=== PATIENT | male | born 1955 | race Caucasian/White ===

== ENCOUNTER 2016-11-25 22:55 | Inpatient (IN) ==
[2016-11-25 23:48] LABS: INR 1.3; Prothrombin Time 13.8 Seconds (9.4-12.1)
[2016-11-25 23:50] LABS: Activated Partial Thrombo Time 33.5 Seconds (26.0-36.0)
--- NOTE | 2016-11-26 00:18 | Emergency Department Note ---
START Narrative - START START: I examined this patient and my medical decision-making was reviewed with the EMPLOYEE COUNSELOR/PA/Advanced Practice Nurse/Resident Physician. I agree with the documented findings, disposition and treatment plan as described except to the extent set forth below. ED attending note: Patient seen with emergency medicine resident Dr. Landeros. Please see a copy of his note for details of the H&P, evaluation, management and disposition of this patient. We independently had [id number] contact with the patient Briefly: A 61-year-old male sent in by his primary care provider Dr. Bang. And a lathe sander Dr. Soto calling stating that he had an outpatient troponin which was elevated at 0.06. Patient has a history of obesity Mable hypertension. Not complaining of chest pain just fatigue and shortness of breath and weight gain. EKG shows nonspecific ST-T changes. Troponin came back even higher, elevated at 0.07. Patient will be admitted for ACS rule out. Provided 40 minutes of critical care services for this patient. Admission pending
[2016-11-26] MEDS ORDERED: *HR* HYDROmorphone (PF) 1 MG/ML SYRINGE IVP ONE (01:17)
[2016-11-26] MEDS ORDERED: Aspirin 81 MG TAB.CHEW PO ONE (01:17)
--- NOTE | 2016-11-26 01:18 | Emergency Department Note ---
Disposition Clinical Impression: Elevated troponin Acute exacerbation of CHF (congestive heart failure) Qualifiers: Congestive heart failure type: unspecified congestive heart failure type Qualified Code(s): I50.9 - Heart failure, unspecified Fluid overload Qualifiers: Hypervolemia type: unspecified Qualified Code(s): E87.70 - Fluid overload, unspecified Disposition: Admitted As Inpatient Condition: Fair Referrals: NO,PCP [Primary Care Provider] - Forms: ED Satisfaction Letter Chest Pain HPI - General Chief Complaint: ED Chest Pain Stated Complaint: Heart enzymes elevated Time Seen by Provider: 11/25/16 23:16 Source: patient Limitations: no limitations Vital Signs Reviewed: Yes Nursing Notes Reviewed: Yes - History of Present Illness HPI Narrative: 61-year-old male with a history of cardiomyopathy, congestive heart failure with fluid overload, previous DVT on Xarelto presents to the emergency department with progressive exertional dyspnea and intermittent chest pains. Just last week he was admitted at [facility] due to CHF exacerbation and fluid overload. Reports losing nearly 7 pounds while he was in the hospital. He was given nitroglycerin and Lasix according to the patient. Over the last week he is gaining back nearly 70 pounds and states he feels very short of breath specifically with exertion. He denies any current chest pain. He saw his primary doctor today, Dr. Bang who checked outpatient labs and found his troponin to be elevated at 0.06. They contact with the mold yard crane operator and sent him emergently to the emergency department. Currently states he feels comfortable while at rest. Denies any symptoms currently. Severity scale (1-10): 8 - Related Data Home Medications Medication Instructions Recorded Confirmed Atorvastatin [Lipitor] 40 mg PO DAILY 03/01/15 01/20/16 Clopidogrel [Plavix] 75 mg PO DAILY 03/01/15 01/20/16 Fluticasone/Salmeterol [Advair 1 puff IH BID 03/01/15 01/20/16 250-50 Diskus] Losartan [Cozaar] 25 mg PO DAILY 03/01/15 01/20/16 Montelukast [Singulair] 10 mg PO DAILY 03/01/15 01/20/16 Budesonide/Formoterol 160/4.5 2 puff IH BIDR 01/20/16 01/20/16 [Symbicort 160/4.5] [place]-3S/Dha/Epa/Fish Oil [Fish 1,200 mg PO DAILY 01/20/16 01/20/16 Oil 1,200 mg Softgel] Previous Rx's Medication Instructions Recorded Aspirin Enteric Coated [Aspirin EC] 81 mg PO DAILY #30 tablet. 01/22/16 Atorvastatin [Lipitor] 40 mg PO DAILY #30 tablet 01/22/16 Clopidogrel [Plavix] 75 mg PO DAILY #30 tablet 01/22/16 Docusate [Colace] 100 mg PO BID PRN #60 capsule 01/22/16 Furosemide [Lasix] 40 mg PO BIDDIURETIC #60 tablet 01/22/16 Isosorbide MONOnitrate (24 HR) 30 mg PO DAILY #30 tab.er.24h 01/22/16 [Imdur] Losartan [Cozaar] 50 mg PO DAILY #30 tablet 01/22/16 Metoprolol [Lopressor] 25 mg PO BID #60 tablet 01/22/16 OxyCODONE/APAP 10/325 [Percocet 1 each PO Q8HR PRN #30 tablet 01/22/16 10/325 MG] Naproxen [Naprosyn] 500 mg PO BID #14 tablet 02/14/16 levoFLOXacin [Levaquin] 500 mg PO DAILY #7 tablet 07/22/16 Cyclobenzaprine [Flexeril] 10 mg PO TID PRN #20 tablet 08/06/16 Ketorolac [Toradol] 10 mg PO Q6HR PRN #20 tablet 08/06/16 Allergies Allergy/AdvReac Type Severity Reaction Status Date / Time Penicillins Allergy Severe Difficulty Verified 11/25/16 22:59 Breathing All systems ED: reviewed and negative except as stated. Constitutional: Denies: fever, chills Cardiovascular: Reports: chest pain, dyspnea on exertion. Denies: syncope Respiratory: Reports: cough, dyspnea Gastrointestinal: Denies: abdominal pain, nausea, vomiting Musculoskeletal: Denies: back pain, neck pain Integumentary: Denies: rash Neurological: Denies: headache, weakness, numbness Endocrine: Reports: fatigue Chest Pain PMH - Past Medical History Medical history: Reports: arthritis, asthma, CHF, COPD, DVT, hypertension, other Surgical history: Reports: angioplasty/stent, pacemaker/AICD Psychiatric history: Reports: no psych history - Social History Smoking Status: Former smoker Alcohol use: Reports: rarely Drug use: Reports: none Physical Exam General: Appears well, alert and oriented x 3 Cardiovascular: Regular rate and rhythm. S1, S2. No murmurs, rubs or gallops. Respiratory: Mild diminished breath sounds bilaterally. No coughing or respiratory distress, speaking in full sentences Abdomen: Soft, nontender. No guarding, rebound or rigidity. Eyes: Conjunctivae are clear without scleral icterus HENT: No oral mucosal lesions. Moist mucous membranes Neuro: Alert and oriented, no motor sensory deficits Musculoskeletal: Bilateral lower extremity chronic skin changes involving the ankles bilaterally. No evidence of cellulitis. no calf tenderness. Skin: Chronic changes of lower extremities but no other rashes or lesions Psych: Appropriate - General Limitations: no limitations General appearance: alert, in no apparent distress Course Course Narrative: Presents with progressive dyspnea and significant weight gain. He was in [facility] just over a week ago and was treated for what sounds like CHF exacerbation with fluid overload. He reports gaining nearly 70 pounds in a week. At rest he denies any current symptoms. His EKG shows a ventricularly paced rhythm without any significant changes. His initial troponin was checked outpatient today and was 0.06 and repeated today which was 0.07 - Reevaluation(s) Reevaluation #1: Plan to admit due to acute exacerbation of CHF with fluid overload. 40 mg of IV Lasix given in the ED. Repeat troponin elevated at 0.07 in the face of normal renal function. Discussed with the on-call hospitalist who accepts for admission, no further orders at this time Vital Signs Temperature 97.9 F 11/25/16 22:56 Pulse Rate 69 11/25/16 22:56 Respiratory Rate 18 11/25/16 22:56 Blood Pressure 157/81 11/25/16 22:56 O2 Sat by Pulse Oximetry 94 11/25/16 22:56 Temperature 97.9 F 11/25/16 22:56 Pulse Rate 77 11/26/16 01:00 Respiratory Rate 18 11/26/16 01:00 Blood Pressure 160/75 11/26/16 01:00 O2 Sat by Pulse Oximetry 93 11/26/16 01:00 Oxygen Delivery Oxygen Delivery Room Air Chest Pain - Lab Data Lab Results 11/25/16 11/25/16 Range/Units 23:31 23:31 PT 13.8 H (9.4-12.1) Seconds INR 1.3 APTT 33.5 (26.0-36.0) Seconds Troponin I 0.07 H* (0-0.03) ng/mL - EKG Data EKG results narrative: EKG shows a ventricularly paced rhythm with a rate of 61 beats or minute. No significant ST changes. When compared to previous on 07/22/16 there is no significant changes.
[2016-11-26] MEDS ORDERED: Furosemide 40 MG/4 ML VIAL IVP ONE ×2 (01:48→10:59)
[2016-11-26] MEDS ORDERED: Nitroglycerin 0.4 MG TAB.SUBL SL PRN (04:33)
[2016-11-26 05:47] LABS: BUN/Creatinine Ratio 24 (6-26); Blood Urea Nitrogen 30 mg/dL (8-26); Calcium 9.1 mg/dL (8.6-10.8); Carbon Dioxide 29 mEq/L (19-29); Chloride 101 mEq/L (98-109); Chol/HDL Ratio 4.8 (0-4.9); Cholesterol 145 mg/dL (< 200); Glucose 197 mg/dL (70-99); HDL Cholesterol 30 mg/dL (40-59); LDL Cholesterol,Calculated 68 mg/dL (0-99); Magnesium 1.9 mg/dL (1.6-2.6); Osmolality,Calculated 304 (280-300); Potassium 3.6 mEq/L (3.5-4.5); Sodium 141 mEq/L (136-145); Triglycerides 233 mg/dL (< 150); eGFR For African Americans > 60 (> 60); eGFR For Non-African Americans 58 (> 60)
[2016-11-26] MEDS: *HR* Morphine 2 MG/ML SYRINGE IVP PRN ×2 (06:19→22:16)
[2016-11-26] MEDS ORDERED: *HR* OxyCODONE/APAP 10/325 TABLET PO PRN (08:53)
[2016-11-26] MEDS ORDERED: Naloxone 0.4 MG/ML INJ IVP PRN (08:54)
[2016-11-26] MEDS: Isosorbide MONOnitrate (24 HR) 30 MG TAB.ER.24H PO SCH (09:48)
[2016-11-26] MEDS: Aspirin Enteric Coated 81 MG Tablet PO SCH (09:48)
--- NOTE | 2016-11-26 10:19 | Cardiology Consult Note ---
Date of Encounter: 11/26/16 Time of Encounter: 10:12 Assessment and Plan (1) Acute exacerbation of CHF (congestive heart failure) Current Visit: Yes Status: Acute Based on documented hx, suspect acute on chronic diastolic CHF exacerbation. BNP is not elevated--94. There is pulmonary edema on CXR. Pt reports gaining 60 pounds over the past week, abdominal distention and worsening dyspnea. He reports recently being hospitalized at [facility] within recent weeks for CHF exacerbation and was diuresed reportedly >60 pounds. Will obtain records. Echo 01/20/16 was poor quality due to pt's size and EF could not be adequately determined. EF on [facility] 01/2016 was 60%. Will order echo with definity to reassess EF. Agree with IV Lasix--received 1 time dose 40mg IV at 0100. Creatinine mildly elevated--1.26. Monitor closely. Discussed with pt strict I/Os, Na and fluid restriction, daily weights. Continue to follow. Qualifiers: Congestive heart failure type: diastolic Qualified Code(s): I50.33 - Acute on chronic diastolic (congestive) heart failure (2) Chest pain Current Visit: No Status: Acute Pt reports chest pain, left sided and aching in nature. Does seem to worsen with exertion. Atypical features in that it is relieved with massage. [facility] 01/2016 with minimal disease. There was a 40% mid RCA stenosis. Per Dr. Bang encounter yesterday reported that pt had a stress test within the past couple weeks at [facility]. currently not at bedside. Pt denies stress test. Stress test was ordered by Dr. Bang yesterday. Will obtain records. If no stress test, will complete while inpt. Qualifiers: Chest pain type: unspecified Qualified Code(s): R07.9 - Chest pain, unspecified (3) CAD (coronary artery disease) Current Visit: No Status: Chronic Hx of PCI to distal LCx in 2014 at [place]. Repeat [facility] 01/2016 minimal CAD. 40% mid RCA lesion noted. ASA, Statin, BB. Qualifiers: Coronary Disease-Associated Artery/Lesion type: [place] artery [place] vs. transplanted heart: [place] heart Associated angina: angina presence unspecified Qualified Code(s): I25.10 - Atherosclerotic heart disease of [place] coronary artery without angina pectoris (4) Pacemaker Current Visit: No Status: Chronic Follows with device clinic. PAF and NSVT noted on last device check. (5) Elevated troponin Current Visit: Yes Status: Acute Troponins 0.06, 0.07, 0.07. Flat and adynamic in setting of CHF exacerbation. Nondiagnostic for true ACS. Obtaining echo. Obtaining records from [facility]. [facility] 01/2016 minimal disease. Hx of CAD and PCI. Possible stress test while inpt if one was not completed at [facility]. (6) PAF (paroxysmal atrial fibrillation) Current Visit: Yes Status: Chronic PAF noted on device check 07/2016. Followed up with Dr. Gibran Ortega after, was started on Xarelto. Currently paced. Discussion w patient/family: The assessment and plan as outlined above was discussed with the patient and/or family members who expressed understanding and agreement. All questions were answered. Thank you for involving us in the care of your patient. Please call with any questions. I will discuss all the above with Dr. Gibran Ortega and make changes as necessary. History of Present Illness Consult date: 11/26/16 Requesting physician: Henrry Shields Consult reason: CHF, troponin elevation Chief complaint: dyspnea, weight gain, chest pain History of present illness: Mr. Morgan is a 61 year old male with PMH morbid obesity, right heart failure, NIRMAL, HTN, HLD, CAD with hx of PCI, prior pacemaker placement. PAF on Xarelto, DVT hx that presented to ED after outpt troponin was found to be mildly elevated at 0.06. Pt reports being hospitalized last week at [facility] in [place] for CHF. He states he was diuresed with IV Lasix and lost >60 lbs. He states weight going into the hospital was 397 lbs, leaving it was 333 lbs. He reports weight at cardio office yesterday was 399 lbs. He reports intermittent left sided chest aching that does seem worse with exertion, but can also occur at rest. He had a [facility] 01/2016 that showed mild CAD, 40% mid RCA. Echo 01/2016 was poor quality and LVEF was unable to be estimated. He reports dyspnea has been worsening. He denies lower extremity edema, but reports abdominal distention. He reports eating a low salt diet. He states no one instructed him regarding fluid restriction, but that he thinks he drinks <2L/ fluid/day. BNP 94, CXR with cardiomegaly and pulmonary edema. Troponins trended- -0.06, 0.07, 0.07. Per Dr. Bang office note yesterday, reported a stress test was done at [facility] in the past 2 weeks. Pt tells me this AM he did not undergo a stress test. not at bedside to discuss. Past Med Surg Social Fam HX - Past Medical History Medical history: arthritis, asthma, CHF, COPD, coronary artery disease, DVT, hypertension, other Psychiatric history: no psych history - Past Surgical History Surgical History: angioplasty/stent, pacemaker/AICD - Social History Smoking Status: Former smoker Smokeless Tobacco Status: No Alcohol use: rarely Drug use: none - Family History Father Living Status: Hx Family Cardiac Disorders: Yes (CHF) Medications and Allergies Atorvastatin [Lipitor] 40 mg PO DAILY 11/26/16 [History] Cholecalciferol (Vitamin D3) [Vitamin D] 50,000 unit PO QWEEK 11/26/16 [History] Duloxetine HCl [Cymbalta] 60 mg PO DAILY 11/26/16 [History] Furosemide [Lasix] 80 mg PO DAILY 11/26/16 [History] Losartan Potassium [Cozaar] 50 mg PO DAILY 11/26/16 [History] Metoprolol [Lopressor] 25 mg PO DAILY 11/26/16 [History] Potassium Chloride [K-Tab ER] 20 meq PO DAILY 11/26/16 [History] Rivaroxaban [Xarelto] 20 mg PO QDPC 11/26/16 [History] Allergies Penicillins Allergy (Severe, Verified 11/25/16 22:59) Difficulty Breathing hives also All Systems Review: A 10-system review of systems was performed and is negative for pertinent findings except as documented above in the HPI. - Constitutional Constitutional: weight gain - Cardiovascular Cardiovascular: as per HPI, chest pain at rest, chest pain with exertion, dyspnea at rest, dyspnea on exertion, radiating jaw, neck or arm pain - Respiratory Respiratory: dyspnea Physical Examination Vital Signs, Last 4 Hours Temp Pulse Resp BP Pulse Ox 11/26/16 08:28 90 11/26/16 06:45 97.4 F L 81 20 115/65 90 Vital Signs Temp Pulse Resp BP Pulse Ox 11/26/16 10:18 97.9 F 70 18 132/76 90 11/26/16 08:28 90 11/26/16 06:45 97.4 F L 81 20 115/65 90 11/26/16 03:58 97.9 F 73 16 115/65 96 11/26/16 03:37 97 11/26/16 02:30 98.3 F 88 18 175/97 92 11/26/16 02:20 18 156/73 11/26/16 01:54 80 18 149/81 91 11/26/16 01:00 77 18 160/75 93 11/26/16 00:00 78 18 157/88 92 11/25/16 22:56 97.9 F 69 18 157/81 94 Intake and Output 11/25/16 11/26/16 11/26/16 23:59 07:59 15:59 Output Total 700 / 700 600 / 600 Balance -700 / -700 -600 / -600 Output: Urine 700 / 700 600 / 600 Other: Weight 178.262 kg General: Conversant, No Apparent Distress HEENT: Atraumatic, Normocephaly, Mucus Membranes Moist Neck: Normal carotid pulses Cardiac: Reg Rate and Rhythm, Normal S1 and S2, No Murmur Lungs: Normal Breath Sounds, No Wheeze, Rales, Rhonchi Neuro: Alert and responsive, No focal deficits noted Abdomen: Non-Tender, Other (distended) Skin: No rashes noted on visualized skin Musculoskeletal: No Chest Wall Tenderness Extremities: No Clubbing, No Edema, Normal Pulses Results 11/26/16 05:07 Lab Results 11/26/16 11/26/16 05:07 05:07 Sodium 141 Potassium 3.6 Chloride 101 Carbon Dioxide 29 BUN 30 H Creatinine 1.26 H Glucose 197 H Calcium 9.1 Magnesium 1.9 Troponin I 0.07 H* BMP 11/26/16 Range/Units 05:07 Sodium 141 (136-145) mEq/L Potassium 3.6 (3.5-4.5) mEq/L Chloride 101 (98-109) mEq/L Carbon Dioxide 29 (19-29) mEq/L BUN 30 H (8-26) mg/dL Creatinine 1.26 H (0.72-1.25) mg/dL Glucose 197 H (70-99) mg/dL Calcium 9.1 (8.6-10.8) mg/dL Cardiac Enzymes 11/26/16 11/25/16 Range/Units 05:07 23:31 Troponin I 0.07 H* 0.07 H* (0-0.03) ng/mL Impressions Chest X-Ray 11/25/16 23:17 IMPRESSION: Cardiomegaly and pulmonary edema. D/ / Leandro Scales MD / Leandro Scales MD Interpreting Provider: Leandro Scales MD Active Medications Aspirin (Aspirin Ec) 81 mg PO DAILY [facility] Stop: 05/28/17 09:01 Last Admin: 11/26/16 09:48 Dose: 81 mg Atorvastatin Calcium (Lipitor) 40 mg PO DAILY [facility] Stop: 05/28/17 09:01 Last Admin: 11/26/16 09:48 Dose: 40 mg Budesonide/Formoterol Fumarate (Symbicort) 2 puff IH BIDR [facility] Stop: 05/28/17 10:01 Cyclobenzaprine HCl (Flexeril) 10 mg PO TID PRN PRN Reason: Spasms Stop: 05/28/17 08:54 Docusate Sodium (Colace) 100 mg PO BID PRN; Protocol PRN Reason: Constipation Stop: 05/28/17 08:54 Hydromorphone HCl (Dilaudid) 0.5 mg IVP Q4HR PRN PRN Reason: Severe Pain (7-10) Stop: 05/28/17 08:55 Isosorbide Mononitrate (Imdur) 30 mg PO DAILY [facility] Stop: 05/28/17 09:01 Last Admin: 11/26/16 09:48 Dose: 30 mg Losartan Potassium (Cozaar) 25 mg PO DAILY ULISES PRN Reason: Protocol Stop: 05/28/17 09:01 Last Admin: 11/26/16 09:48 Dose: 25 mg Metoprolol Tartrate (Lopressor) 25 mg PO BID [facility] Stop: 05/28/17 09:01 Last Admin: 11/26/16 09:48 Dose: 25 mg Montelukast Sodium (Singulair) 10 mg PO DAILY [facility] Stop: 05/28/17 09:01 Last Admin: 11/26/16 09:48 Dose: 10 mg Morphine Sulfate (Morphine Sulfate) 2 mg IVP Q2H PRN PRN Reason: Chest pain unrelieved with NTG Stop: 05/28/17 04:34 Last Admin: 11/26/16 06:19 Dose: 2 mg Naloxone HCl (Narcan) 0.4 mg IVP Q2MIN PRN PRN Reason: Opioid Reversal Stop: 05/28/17 08:55 Nitroglycerin (Nitroglycerin) 0.4 mg SL Q5MIN PRN PRN Reason: Chest Pain Stop: 05/28/17 04:34 Oxycodone/Acetaminophen (Percocet 10/325) 1 each PO Q8HR PRN PRN Reason: Pain Stop: 05/28/17 08:54 - Imaging and Cardiology Echo: report reviewed Cardiac cath: report reviewed - EKG Interpretation EKG results cardiology: personally reviewed (Underlying paced, rhythm appears irregular.), other (24 hour tele AVG HR 80, paced) Consult Discharge Plan - Plan Referrals: NO,PCP [Primary Care Provider] -
[2016-11-26] MEDS: Budesonide/Formoterol 160/4.5 MDI IH SCH ×2 (10:38→23:24)
--- NOTE | 2016-11-26 11:16 | Internal Med History&Physical ---
Date of Encounter: 11/26/16 Time of Encounter: 11:11 Assessment and Plan (1) Morbid obesity with BMI of 40.0-44.9, adult Current visit: No Status: Chronic (2) CAD (coronary artery disease) Current visit: No Status: Chronic Trend troponin. So for mildly elevated flat pattern. Continue with aspirin and statin metoprolol and Imdur. Qualifiers: Coronary Disease-Associated Artery/Lesion type: [place] artery [place] vs. transplanted heart: [place] heart Associated angina: angina presence unspecified Qualified Code(s): I25.10 - Atherosclerotic heart disease of [place] coronary artery without angina pectoris (3) NIRMAL on CPAP Current visit: No Status: Chronic Continue CPAP nightly. (4) DVT prophylaxis Current visit: No Status: Acute Fully anticoagulated with Xarelto does not require any additional prophylaxis at this time. (5) Acute exacerbation of CHF (congestive heart failure) Current visit: Yes Status: Acute Patient reports 60 pound weight gain since recent discharge from [facility] [place]. Reports increasing shortness of breath and chest pain. CONSISTENT with CHF. Review of his medical record reveals January 2016 echocardiogram was inconclusive, poor quality study, could not assess ejection fraction. Plan: IV Lasix 40 mg twice a day, fluid restriction, sodium restricted diet, daily weights. Repeat echocardiogram with Definity contrast. Qualifiers: Congestive heart failure type: diastolic Qualified Code(s): I50.33 - Acute on chronic diastolic (congestive) heart failure (6) Elevated troponin Current visit: Yes Status: Acute Flat adynamic pattern likely secondary to CHF. Consult cardiology. (7) PAF (paroxysmal atrial fibrillation) Current visit: Yes Status: Chronic Rate controlled on metoprolol. Continue with Zaroxolyn. Internal Medicine - H&P: HPI Chief complaint: Elevated troponin Admitted From: Emergency Dept Plans for Post Hospital Care: Home History of present illness: Mr. Morgan is a 61 year old male with past medical history significant for cardiomyopathy and congestive heart failure, DVT, atrial fibrillation chronically anticoagulated Xarelto who presented to the hospital sent by his methods engineer for elevated troponin. He was recently admitted to the hospital in [place] and treated for heart failure. After discharge he says that he got more short of breath and increasing dyspnea on exertion and he started gaining weight. He reported gaining 60 pounds in the last 1 week from 330 pounds on discharge back to 390 which was his preadmission weight. He reports episodic left-sided chest pain in the area of his pacemaker which improves with him rubbing the area, lasting for several minutes. A 10 point review of systems was otherwise negative. Family history pertinent for coronary artery disease and the patient's father manifested at age 60 Past Med Surg Social Fam HX - Past Medical History Medical history: arthritis, asthma, CHF, COPD, coronary artery disease, DVT, hypertension, other Psychiatric history: no psych history - Past Surgical History Surgical History: angioplasty/stent, pacemaker/AICD - Social History Smoking Status: Former smoker Smokeless Tobacco Status: No Alcohol use: rarely Drug use: none - Family History Father Living Status: Hx Family Cardiac Disorders: Yes (CHF) Internal Medicine - H&P: Meds Atorvastatin [Lipitor] 40 mg PO DAILY 11/26/16 [History] Cholecalciferol (Vitamin D3) [Vitamin D] 50,000 unit PO QWEEK 11/26/16 [History] Duloxetine HCl [Cymbalta] 60 mg PO DAILY 11/26/16 [History] Furosemide [Lasix] 80 mg PO DAILY 11/26/16 [History] Losartan Potassium [Cozaar] 50 mg PO DAILY 11/26/16 [History] Metoprolol [Lopressor] 25 mg PO DAILY 11/26/16 [History] Potassium Chloride [K-Tab ER] 20 meq PO DAILY 11/26/16 [History] Rivaroxaban [Xarelto] 20 mg PO QDPC 11/26/16 [History] Allergies Penicillins Allergy (Severe, Verified 11/25/16 22:59) Difficulty Breathing hives also All Systems PM: A 10-system review of systems was performed and is negative for pertinent findings except as documented above in the HPI. - Constitutional Vitals: Temp Pulse Resp BP Pulse Ox 97.9 F 70 18 132/76 95 11/26/16 10:18 11/26/16 10:18 11/26/16 10:38 11/26/16 10:18 11/26/16 10:38 General appearance: Present: A&O X 3, morbidly obese, no acute distress - Eye Eye exam: Present: PERRL, conjuntiva pink, sclera anicteric Pupils: Present: PERRL - Neck Neck exam general surgery: Present: supple, trachea midline. Absent: lymphadenopathy - Respiratory Respiratory exam: Present: CTAB. Absent: accessory muscle use, rales, rhonchi, wheezes - Cardiovascular Cardiovascular exam: Present: RRR, +S1, +S2. Absent: diastolic murmur, gallop, rubs, systolic murmur - GI/Abdominal GI/Abdominal exam: Present: normal bowel sounds, soft, no peritoneal signs. Absent: distended, tenderness - Extremities Exam Extremities exam: Present: pedal edema, warm, radial pulses palpable and symetrical. Absent: calf tenderness, cyanotic - Neurological Exam Neurological exam: Present: CN II-XII intact, oriented X3, no focal deficits. Absent: pronater drift, facial droop, speech deficit - Skin Skin exam: Present: dry, intact Internal Med - H&P Results - Labs CBC & Chem 7: 11/26/16 05:07 - EKG Data -: EKG Interpreted by Myself (Ventricularly paced rhythm, underlying atrial flutter)
--- NOTE | 2016-11-26 12:31 | Electrocardiograph Report ---
[address] [place], [place] [address] Test Date: 2016-11-25 Pat Name: Steve Morgan Department: 103 Room: 2A Gender: M Intelligence Senior Sergeant: EVI : 1955 Requested By: Guy Cedeno Order Number: [id number] Reading MD: Desmond Dorantes MD Measurements Intervals Ruby Rate: 61 P: -18 ME: 95 QRS: -64 QRSD: 90 T: -3 QT: 371 QTc: 374 Interpretive Statements DEMAND VENTRICULAR PACEMAKER Electronically Signed On 11-26-2016 12:30:05 EDT by Desmond Dorantes MD
[2016-11-26] MEDS: *HR* HYDROmorphone (PF) 1 MG/ML SYRINGE IVP PRN (12:39)
[2016-11-26] MEDS ORDERED: *HR* Rivaroxaban 10 MG TABLET PO SCH (17:00)
[2016-11-26] MEDS: *HR* Rivaroxaban 10 MG TABLET PO SCH (18:00)
[2016-11-26] MEDS: Furosemide 40 MG/4 ML VIAL IVP SCH ×2 (18:13→22:16)
[2016-11-26] MEDS ORDERED: Perflutren Lipid Microsphere 1.3 ML in 0.9 % Sodium Chloride 8.7 ML IVP ONE (20:14)
[2016-11-27 05:06] LABS: Basophils % 0.5 %; Eosinophils # 0.3 K/mcL (0.0-0.6); Eosinophils % 3.1 %; Hematocrit 43.4 % (37.5-50.1); Hemoglobin 13.8 g/dL (12.9-16.9); Immature Granulocytes % 0.2 % (0-4); Lymphocytes # 0.9 K/mcL (0.6-4.6); Lymphocytes % 11.4 %; Mean Corpuscular HGB Conc 31.8 g/dL (31.6-35.5); Mean Corpuscular Hemoglobin 29.7 pg (28.0-33.3); Mean Corpuscular Volume 93.3 fL (83.0-100.0); Mean Platelet Volume 11.4 fL (9.4-12.4); Monocytes # 1.1 K/mcL (0.0-1.3); Monocytes % 13.3 %; Neutrophils # 5.9 K/mcL (1.6-8.9); Platelet Count 173 K/mcL (140-400); Red Blood Count 4.65 M/mcL (4.19-5.50); Red Cell Distribution Width 14.7 % (11.5-14.5); Segmented Neutrophils % 71.5 %
[2016-11-27 05:24] LABS: BUN/Creatinine Ratio 26 (6-26); Blood Urea Nitrogen 30 mg/dL (8-26); Carbon Dioxide 31 mEq/L (19-29); Chloride 99 mEq/L (98-109); Glucose 110 mg/dL (70-99); Osmolality,Calculated 299 (280-300); Sodium 141 mEq/L (136-145); eGFR For African Americans > 60 (> 60); eGFR For Non-African Americans > 60 (> 60)
[2016-11-27] MEDS: Budesonide/Formoterol 160/4.5 MDI IH SCH ×2 (07:57→20:09)
[2016-11-27] MEDS: Furosemide 40 MG/4 ML VIAL IVP SCH ×2 (08:16→16:27)
[2016-11-27] MEDS: *HR* HYDROmorphone (PF) 1 MG/ML SYRINGE IVP PRN ×2 (08:16→12:15)
[2016-11-27] MEDS: Aspirin Enteric Coated 81 MG Tablet PO SCH (08:17)
--- NOTE | 2016-11-27 09:48 | Cardiology Progress Note ---
Date of Encounter: 11/27/16 Time of Encounter: 09:46 Assessment and Plan (1) Acute exacerbation of CHF (congestive heart failure) Current Visit: Yes Status: Acute Based on documented hx, suspect acute on chronic diastolic CHF exacerbation. BNP is not elevated--94. There is pulmonary edema on CXR. Pt reports gaining 60 pounds over the past week, abdominal distention and worsening dyspnea. He reports recently being hospitalized at [facility] within recent weeks for CHF exacerbation and was diuresed reportedly >60 pounds. Will obtain records. Echo 01/20/16 was poor quality due to pt's size and EF could not be adequately determined. EF on [facility] 01/2016 was 60%. Echo with definity to reassess EF is pending. Agree with IV Lasix--40mg BID. Cumulative I/O negative -3010mL, but minimal intake recorded, so question accuracy. Discussed with pt strict I/Os, Na and fluid restriction, daily weights. Continue to follow. Qualifiers: Congestive heart failure type: diastolic Qualified Code(s): I50.33 - Acute on chronic diastolic (congestive) heart failure (2) Chest pain Current Visit: No Status: Acute Pt reports chest pain, left sided and aching in nature. Does seem to worsen with exertion. Atypical features in that it is relieved with massage. [facility] 01/2016 with minimal disease. There was a 40% mid RCA stenosis. Per Dr. Bang encounter 11/25/16 reported that pt had a stress test within the past couple weeks at [facility]. Pt denies stress test. I discussed with this AM. She states a physician at [facility] told her they did a stress test, but never discussed results. Stress test was ordered by Dr. Bang 11/25/16. Will obtain records. If no stress test, will complete while inpt. Records requested. Qualifiers: Chest pain type: unspecified Qualified Code(s): R07.9 - Chest pain, unspecified (3) CAD (coronary artery disease) Current Visit: No Status: Chronic Hx of PCI to distal LCx in 2014 at [place]. Repeat [facility] 01/2016 minimal CAD. 40% mid RCA lesion noted. ASA, Statin, BB. Qualifiers: Coronary Disease-Associated Artery/Lesion type: [place] artery [place] vs. transplanted heart: [place] heart Associated angina: angina presence unspecified Qualified Code(s): I25.10 - Atherosclerotic heart disease of [place] coronary artery without angina pectoris (4) Pacemaker Current Visit: No Status: Chronic Follows with device clinic. PAF and NSVT noted on last device check. (5) Elevated troponin Current Visit: Yes Status: Acute Troponins 0.06, 0.07, 0.07. Flat and adynamic in setting of CHF exacerbation. Nondiagnostic for true ACS. Obtaining echo. Obtaining records from [facility]. [facility] 01/2016 minimal disease. Hx of CAD and PCI. Possible stress test while inpt if one was not completed at [facility]. (6) PAF (paroxysmal atrial fibrillation) Current Visit: Yes Status: Chronic PAF noted on device check 07/2016. Followed up with Dr. Gibran Ortega after, was started on Xarelto. Currently paced, underlying PAF. Discussion w patient/family: The assessment and plan as outlined above was discussed with the patient and/or family members who expressed understanding and agreement. All questions were answered. Thank you for involving us in the care of your patient. Please call with any questions. I will discuss all the above with Dr. Gibran Ortega and make changes as necessary. Subjective Principal diagnosis: CHF Interval history: Pt reports symptoms are unchanged. Still reports shortness of breath and abdominal distention. Cumulative I/O negative -3010mL. Objective Vital Signs, Last 4 Hours Temp Resp BP Pulse Ox 11/27/16 08:35 96 11/27/16 06:55 98.2 F 89 141/76 96 Vital Signs Temp Pulse Resp BP Pulse Ox 11/27/16 08:35 96 11/27/16 06:55 98.2 F 89 141/76 96 11/27/16 04:57 98 F 90 16 146/77 95 11/27/16 00:21 98 F 77 18 168/82 93 11/26/16 20:13 98.6 F 75 18 150/78 90 11/26/16 15:31 97.8 F 70 18 119/61 92 11/26/16 10:38 18 95 11/26/16 10:18 97.9 F 70 18 132/76 90 Intake and Output 11/26/16 11/27/16 11/27/16 23:59 07:59 15:59 Output Total 1350 / 1350 600 / 600 Balance -1350 / -1350 -600 / -600 Output: Urine 1350 / 1350 600 / 600 Other: Meal npo Percent of Meal Consumed 0% Weight 179.6 kg Patient Weight 11/27/16 23:59 Weight 179.6 kg General: Conversant, No Apparent Distress HEENT: Atraumatic, Normocephaly, Mucus Membranes Moist Neck: No JVD, Normal carotid pulses Cardiac: Reg Rate and Rhythm, Normal S1 and S2, No Murmur Lungs: Normal Breath Sounds, No Wheeze, Rales, Rhonchi Neuro: Alert and responsive, No focal deficits noted Abdomen: Non-Tender, Other (distended) Skin: No rashes noted on visualized skin Musculoskeletal: No Chest Wall Tenderness Extremities: No Clubbing, No Cyanosis, No Edema, Normal Pulses Results 11/27/16 04:33 11/27/16 04:33 Lab Results 11/26/16 11/27/16 11/27/16 10:43 04:33 04:33 WBC 8.3 Hgb 13.8 Hct 43.4 Plt Count 173 Sodium 141 Potassium 4.0 Chloride 99 Carbon Dioxide 31 H BUN 30 H Creatinine 1.15 Glucose 110 H Calcium 9.0 Magnesium 2.0 Troponin I 0.06 H* Short CBC 11/27/16 Range/Units 04:33 WBC 8.3 (4.3-11.1) K/mcL Hgb 13.8 (12.9-16.9) g/dL Hct 43.4 (37.5-50.1) % Plt Count 173 (140-400) K/mcL Neutrophils # 5.9 (1.6-8.9) K/mcL BMP 11/27/16 Range/Units 04:33 Sodium 141 (136-145) mEq/L Potassium 4.0 (3.5-4.5) mEq/L Chloride 99 (98-109) mEq/L Carbon Dioxide 31 H (19-29) mEq/L BUN 30 H (8-26) mg/dL Creatinine 1.15 (0.72-1.25) mg/dL Glucose 110 H (70-99) mg/dL Calcium 9.0 (8.6-10.8) mg/dL Cardiac Enzymes 11/26/16 Range/Units 10:43 Troponin I 0.06 H* (0-0.03) ng/mL Active Medications Aspirin (Aspirin Ec) 81 mg PO DAILY [facility] Stop: 05/28/17 09:01 Last Admin: 11/27/16 08:17 Dose: 81 mg Atorvastatin Calcium (Lipitor) 40 mg PO HS [facility] Stop: 05/29/17 21:01 Budesonide/Formoterol Fumarate (Symbicort) 2 puff IH BIDR [facility] Stop: 05/28/17 10:01 Last Admin: 11/27/16 07:57 Dose: 2 puff Cyclobenzaprine HCl (Flexeril) 10 mg PO TID PRN PRN Reason: Spasms Stop: 05/28/17 08:54 Docusate Sodium (Colace) 100 mg PO BID PRN; Protocol PRN Reason: Constipation Stop: 05/28/17 08:54 Last Admin: 11/26/16 22:16 Dose: 100 mg Duloxetine HCl (Cymbalta) 60 mg PO DAILY [facility] Stop: 05/29/17 09:01 Last Admin: 11/27/16 08:17 Dose: 60 mg Furosemide (Lasix) 40 mg IVP BID [facility] Stop: 05/28/17 16:47 Last Admin: 11/27/16 08:16 Dose: 40 mg Hydromorphone HCl (Dilaudid) 0.5 mg IVP Q4HR PRN PRN Reason: Severe Pain (7-10) Stop: 05/28/17 08:55 Last Admin: 11/27/16 08:16 Dose: 0.5 mg Isosorbide Mononitrate (Imdur) 30 mg PO DAILY [facility] Stop: 05/28/17 09:01 Last Admin: 11/26/16 09:48 Dose: 30 mg Losartan Potassium (Cozaar) 50 mg PO DAILY [facility] Stop: 05/29/17 09:01 Metoprolol Tartrate (Lopressor) 25 mg PO DAILY [facility] Stop: 05/29/17 09:01 Montelukast Sodium (Singulair) 10 mg PO DAILY [facility] Stop: 05/28/17 09:01 Last Admin: 11/27/16 08:17 Dose: 10 mg Morphine Sulfate (Morphine Sulfate) 2 mg IVP Q2H PRN PRN Reason: Chest pain unrelieved with NTG Stop: 05/28/17 04:34 Last Admin: 11/26/16 22:16 Dose: 2 mg Naloxone HCl (Narcan) 0.4 mg IVP Q2MIN PRN PRN Reason: Opioid Reversal Stop: 05/28/17 08:55 Nitroglycerin (Nitroglycerin) 0.4 mg SL Q5MIN PRN PRN Reason: Chest Pain Stop: 05/28/17 04:34 Oxycodone/Acetaminophen (Percocet 10/325) 1 each PO Q8HR PRN PRN Reason: Pain Stop: 05/28/17 08:54 Potassium Chloride (Potassium Chloride) 20 meq PO DAILY [facility] Stop: 05/28/17 11:16 Last Admin: 11/27/16 08:18 Dose: 20 meq Rivaroxaban (Xarelto) 20 mg PO 1700 [facility] Stop: 05/28/17 17:01 Last Admin: 11/26/16 18:00 Dose: 20 mg - Imaging and Cardiology Echo: pending - EKG Interpretation EKG results cardiology: other (24 hour tele AVG HR 74, paced.) Consult Discharge Plan - Plan Referrals: NO,PCP [Primary Care Provider] -
--- NOTE | 2016-11-27 10:06 | Internal Med Progress Note ---
Date of Encounter: 11/27/16 Time of Encounter: 10:04 - Assessment and plan (1) CHF (congestive heart failure) Current Visit: Yes Status: Acute Assessment and plan: Patient presents with chest pain, slight troponin leak, weight gain and pedal edema. Cardiology consult appreciated, continue IV Lasix along with fluid restriction, beta gray, urine output monitoring. Telemetry monitoring. Supportive care and supplemental oxygen. Echocardiogram shows mildly decreased ejection fraction of 50%, mild concentric LVH, mild right ventricular dilation, mild mitral stenosis/tricuspid regurgitation/pulmonary hypertension, moderate left atrial dilatation. Qualifiers: Congestive heart failure type: combined Congestive heart failure chronicity : acute on chronic Qualified Code(s): I50.43 - Acute on chronic combined systolic (congestive) and diastolic (congestive) heart failure (2) Chest pain Current Visit: Yes Status: Acute Assessment and plan: Currently chest pain-free. Continue aspirin, beta gray, statin. Telemetry monitoring remains uneventful. Serial troponins are flat and adynamic, around 0.07. Cardiology follow-up appreciated. Echocardiogram results as above. Follow-up nuclear stress test results, 2 day testing is needed. Qualifiers: Chest pain type: precordial pain Qualified Code(s): R07.2 - Precordial pain (3) Elevated troponin Current Visit: Yes Status: Acute Assessment and plan: Plan as above. (4) Morbid obesity with BMI of 40.0-44.9, adult Current Visit: Yes Status: Chronic (5) CAD (coronary artery disease) Current Visit: Yes Status: Chronic Qualifiers: Coronary Disease-Associated Artery/Lesion type: [place] artery [place] vs. transplanted heart: [place] heart Associated angina: angina presence unspecified Qualified Code(s): I25.10 - Atherosclerotic heart disease of [place] coronary artery without angina pectoris (6) NIRMAL on CPAP Current Visit: Yes Status: Chronic (7) Chronic back pain Current Visit: Yes Status: Chronic Assessment and plan: Continue pain control with oral Percocet and IV morphine. Qualifiers: Back pain location: back pain in unspecified location Back pain laterality : unspecified Qualified Code(s): M54.9 - Dorsalgia, unspecified; G89.29 - Other chronic pain (8) Chronic venous stasis dermatitis of both lower extremities Current Visit: Yes Status: Chronic (9) PAF (paroxysmal atrial fibrillation) Current Visit: Yes Status: Chronic Assessment and plan: Currently rate controlled. Continue telemetry monitoring and beta gray. Continue long-term anticoagulation with Xarelto. - Subjective Interval history: Reports improvement in shortness of breath and leg swelling; recent weight gain of 60lbs? per patient; has some orthopnea and exertional dyspnea; improved chest pain; - Constitutional Vitals: Temp Pulse Resp BP Pulse Ox 98.2 F 90 89 141/76 96 11/27/16 06:55 11/27/16 04:57 11/27/16 06:55 11/27/16 06:55 11/27/16 08:35 General appearance: Present: A&O X 3, morbidly obese, answers questions appropriately - Respiratory Respiratory exam: Present: CTAB. Absent: accessory muscle use, rales, rhonchi, wheezes - Cardiovascular Cardiovascular exam: Present: RRR, +S1, +S2. Absent: diastolic murmur, gallop, rubs, systolic murmur - GI/Abdominal GI/Abdominal exam: Present: normal bowel sounds, soft (obese), no peritoneal signs. Absent: distended, tenderness - Extremities Exam Extremities exam: Present: full ROM, pedal edema (trace), warm, radial pulses palpable and symetrical. Absent: calf tenderness, cyanotic Additional comments: B/L anterior leg stasis dermatitis - Neurological Exam Neurological exam: Present: CN II-XII intact, oriented X3, no focal deficits. Absent: pronater drift, facial droop, speech deficit - Skin Skin exam: Present: dry, intact Internal Medicine: Result - Labs CBC & Chem 7: 11/27/16 04:33 11/27/16 04:33 Labs: Short CBC 11/27/16 Range/Units 04:33 WBC 8.3 (4.3-11.1) K/mcL Hgb 13.8 (12.9-16.9) g/dL Hct 43.4 (37.5-50.1) % Plt Count 173 (140-400) K/mcL Neutrophils # 5.9 (1.6-8.9) K/mcL BMP 11/27/16 04:33 Sodium 141 Potassium 4.0 Chloride 99 Carbon Dioxide 31 H BUN 30 H Creatinine 1.15 Glucose 110 H Calcium 9.0 Cardiac Enzymes 11/26/16 Range/Units 10:43 Troponin I 0.06 H* (0-0.03) ng/mL - ABG Interpretation ABG results: PT/INR, D-dimer PT 13.8 Seconds (9.4-12.1) H 11/25/16 23:31 Consult Discharge Plan - Plan Referrals: NO,PCP [Primary Care Provider] -
--- NOTE | 2016-11-27 11:03 | Event Note ---
Date of Encounter: 11/27/16 Time of Encounter: 11:01 - Cardiology Event Note Records received from [facility]. No stress test completed. Echo was the only study done during hospitalization. Will proceed with stress test this AM. It will be a 2 day study.
[2016-11-27] MEDS ORDERED: Regadenoson 0.4 MG/5 ML SYRINGE IVP ONE (12:21)
[2016-11-27] MEDS: Isosorbide MONOnitrate (24 HR) 30 MG TAB.ER.24H PO SCH (16:23)
[2016-11-27] MEDS: *HR* Rivaroxaban 10 MG TABLET PO SCH (16:27)
[2016-11-27] MEDS: *HR* Morphine 2 MG/ML SYRINGE IVP PRN (22:01)
[2016-11-28] MEDS: *HR* Morphine 2 MG/ML SYRINGE IVP PRN ×2 (04:56→08:31)
[2016-11-28] MEDS: Furosemide 40 MG/4 ML VIAL IVP SCH ×2 (08:17→17:06)
[2016-11-28] MEDS: Aspirin Enteric Coated 81 MG Tablet PO SCH (08:18)
[2016-11-28] MEDS: Isosorbide MONOnitrate (24 HR) 30 MG TAB.ER.24H PO SCH (08:18)
--- NOTE | 2016-11-28 09:28 | Cardiology Progress Note ---
Date of Encounter: 11/28/16 Time of Encounter: 09:30 Assessment and Plan (1) Acute exacerbation of CHF (congestive heart failure) Current Visit: Yes Status: Acute Per Cardiology: Based on documented hx, suspect acute on chronic diastolic CHF exacerbation. BNP is not elevated--94. There is pulmonary edema on CXR. Pt reports "gaining 60 pounds over the past week", abdominal distention and worsening dyspnea. He reports recently being hospitalized at [facility] within recent weeks for CHF exacerbation and was diuresed reportedly ">60 pounds ". Echo 01/20/16 was poor quality due to pt's size and EF could not be adequately determined. EF on [facility] 01/2016 was 60%. Current echo shows EF 50%, mild RV dilation, mild LVH, moderate left atrial dilation, mild MR, mild TR, mild pulmonary hypertension. On IV Lasix--40mg BID. Cumulative I/O negative -4490mL, but minimal intake recorded, so question accuracy. On strict I/Os, Na and fluid restriction, daily weights. Current weight 396lbs, office notes dating back to August 2016 show weight 399lbs. Qualifiers: Congestive heart failure type: diastolic Qualified Code(s): I50.33 - Acute on chronic diastolic (congestive) heart failure (2) Chest pain Current Visit: Yes Status: Acute Per Cardiology: Pt reports chest pain eft sided and aching in nature this is continuous "around his pacer site". Atypical features in that it is relieved with massage. [facility] 2015 with minimal disease. There was a 40% mid RCA stenosis. Stress test pending. Further recs after stress test. Qualifiers: Chest pain type: precordial pain Qualified Code(s): R07.2 - Precordial pain (3) Elevated troponin Current Visit: Yes Status: Acute Per Cardiology: Troponins 0.06, 0.07, 0.07. Flat and adynamic in setting of CHF exacerbation. Nondiagnostic for true ACS. Suspect demand ischemia in setting of diastolic CHF. No CR C/S warranted. (4) CAD (coronary artery disease) Current Visit: Yes Status: Chronic Per Cardiology: Hx of PCI to distal LCx in 2014 at [place].Repeat [facility] 01/2016 minimal CAD. 40% mid RCA lesion noted. On ASA, Statin, BB. Qualifiers: Coronary Disease-Associated Artery/Lesion type: [place] artery [place] vs. transplanted heart: [place] heart Associated angina: angina presence unspecified Qualified Code(s): I25.10 - Atherosclerotic heart disease of [place] coronary artery without angina pectoris (5) PAF (paroxysmal atrial fibrillation) Current Visit: Yes Status: Chronic Per Cardiology: PAF noted on device check 07/2016. On Xarelto. Currently paced, underlying PAF. (6) Chronic venous stasis dermatitis of both lower extremities Current Visit: Yes Status: Chronic Per Cardiology: Appears stable. Discussion w patient/family: The assessment and plan as outlined above was discussed with the patient who expressed understanding and agreement. All questions were answered. Thank you for involving us in the care of your patient. Please call with any questions. Subjective Principal diagnosis: CHF Interval history: Patient continues to report left-sided chest wall discomfort around "his pacer site "about a 5 out of 10. He reports pain has been continuous and about the same as yesterday. Denies any short of breath or palpitations. Reports completed part 2 of his stress test this morning. Objective Vital Signs, Last 4 Hours Temp Pulse Resp BP Pulse Ox 11/28/16 08:41 94 11/28/16 07:05 98 F 81 18 127/75 94 General: Conversant, No Apparent Distress HEENT: Atraumatic, Normocephaly, Mucus Membranes Moist Cardiac: Reg Rate and Rhythm, Normal S1 and S2, No Murmur Lungs: Normal Breath Sounds, No Wheeze, Rales, Rhonchi Neuro: Alert and responsive, No focal deficits noted Abdomen: Soft, Non-Tender, Other (obese) Skin: Other Musculoskeletal: Other (Left sided CW tenderness) Extremities: Other (trace bilateral LE edema, scaly, dusky colored legs) Results 11/27/16 04:33 11/27/16 04:33 Laboratory Tests 11/25/16 11/26/16 11/26/16 23:31 05:07 05:07 Magnesium Troponin I 0.07 H* 0.07 H* LDL Cholesterol, Calc 68 11/26/16 11/27/16 10:43 04:33 Magnesium 2.0 Troponin I 0.06 H* LDL Cholesterol, Calc ITS Impressions Chest X-Ray 11/25/16 23:17 IMPRESSION: Cardiomegaly and pulmonary edema. D/ / Leandro Scales MD / Leandro Scales MD Interpreting Provider: Leandro Scales MD Intake & Output 11/25/16 11/26/16 11/27/16 11/28/16 23:59 23:59 23:59 23:59 Intake Total 240 / 240 480 / 480 240 / 240 Output Total 1900 / 1900 3100 / 3100 450 / 450 Balance -1660 / -1660 -2620 / -2620 -210 / -210 Weight 178.262 kg 179.6 kg 180.2 kg Active Medications Aspirin (Aspirin Ec) 81 mg PO DAILY [facility] Stop: 05/28/17 09:01 Last Admin: 11/28/16 08:18 Dose: 81 mg Atorvastatin Calcium (Lipitor) 40 mg PO HS [facility] Stop: 05/29/17 21:01 Last Admin: 11/27/16 22:01 Dose: 40 mg Budesonide/Formoterol Fumarate (Symbicort) 2 puff IH BIDR [facility] Stop: 05/28/17 10:01 Last Admin: 11/27/16 20:09 Dose: 2 puff Cyclobenzaprine HCl (Flexeril) 10 mg PO TID PRN PRN Reason: Spasms Stop: 05/28/17 08:54 Docusate Sodium (Colace) 100 mg PO BID PRN; Protocol PRN Reason: Constipation Stop: 05/28/17 08:54 Last Admin: 11/26/16 22:16 Dose: 100 mg Duloxetine HCl (Cymbalta) 60 mg PO DAILY [facility] Stop: 05/29/17 09:01 Last Admin: 11/28/16 08:17 Dose: 60 mg Furosemide (Lasix) 40 mg IVP BIDDIURETIC [facility] Stop: 05/29/17 17:01 Last Admin: 11/28/16 08:17 Dose: 40 mg Isosorbide Mononitrate (Imdur) 30 mg PO DAILY [facility] Stop: 05/28/17 09:01 Last Admin: 11/28/16 08:18 Dose: 30 mg Losartan Potassium (Cozaar) 50 mg PO DAILY [facility] Stop: 05/29/17 09:01 Last Admin: 11/28/16 08:18 Dose: 50 mg Metoprolol Tartrate (Lopressor) 25 mg PO BID [facility] Stop: 05/29/17 21:01 Last Admin: 11/28/16 08:19 Dose: 25 mg Montelukast Sodium (Singulair) 10 mg PO DAILY [facility] Stop: 05/28/17 09:01 Last Admin: 11/28/16 08:18 Dose: 10 mg Morphine Sulfate (Morphine Sulfate) 2 mg IVP Q2H PRN PRN Reason: Chest pain unrelieved with NTG Stop: 05/28/17 04:34 Last Admin: 11/28/16 08:31 Dose: 2 mg Naloxone HCl (Narcan) 0.4 mg IVP Q2MIN PRN PRN Reason: Opioid Reversal Stop: 05/28/17 08:55 Nitroglycerin (Nitroglycerin) 0.4 mg SL Q5MIN PRN PRN Reason: Chest Pain Stop: 05/28/17 04:34 Oxycodone/Acetaminophen (Percocet 10/325) 1 each PO Q8HR PRN PRN Reason: Pain Stop: 05/28/17 08:54 Potassium Chloride (Potassium Chloride) 20 meq PO DAILY [facility] Stop: 05/28/17 11:16 Last Admin: 11/28/16 08:18 Dose: 20 meq Rivaroxaban (Xarelto) 20 mg PO 1700 [facility] Stop: 05/28/17 17:01 Last Admin: 11/27/16 16:27 Dose: 20 mg - Imaging and Cardiology Stress Test: pending Consult Discharge Plan - Plan Referrals: NO,PCP [Primary Care Provider] -
[2016-11-28] MEDS: Budesonide/Formoterol 160/4.5 MDI IH SCH ×2 (10:15→19:50)
[2016-11-28] MEDS ORDERED: *HR* Morphine 2 MG/ML SYRINGE IVP PRN (12:03)
--- NOTE | 2016-11-28 13:38 | Nuclear Medicine Stress Report ---
Regadenoson Nuclear Stress Name: Steve Morgan Date of Study: 11/27/2016 Date: 1955 Ht: 70.0 in Medical Record#: [id number] Age: 61 Wt: 396.0 lb Gender: Male Order #: [id number] Location: [facility] Room: [facility] Supervising Provider: Donta Reynoso CNP Reading Physician: Arvin Farah DO, FACClemente, BRIAN Ordering Physician: Dasia Horn MD Primary Care Physician: None Stress Technologist: Meera Garcia RRT Wood Technologist: Ana Benítez Indications: Chest Pain Impression: Pharmacologic stress ECG is non diagnostic for ischemia due to baseline paced rhythm. Gated EF = 54%. Small sized, mild to moderate intensity, fixed apical inferior and apex defect possibly due to a prior infarct. Perfusion imaging was negative for ischemia. History: Hypertension Hypercholesteremia Prior PCI Stress Test Summary: Stress Test Type: Pharmacologic Regadenoson 0.4mg/5ml given IV Baseline Information: Initial Heart Rate: 72 Blood Pressure: 142/90 Stress Information: Test Terminated Due to (primary): As per protocol Maximum Blood Pressure: 128/84 Maximum Heart Rate: 91 Percent Maximum Heart Rate Achieved: 57 Double Product: [id number] METS Reached: 1 Symptoms: Chest pain Nuclear Summary: SPECT myocardial perfusion imaging using Tc99m Sestamibi given intravenously was performed at rest and following cardiac stress testing. The resting images were obtained following initial dose of 35.3 mCi. Following stress an additional dose of 35.3 mCi was given at peak exercise or 30 seconds post regadenoson infusion. Medication Given: Time Medication Dose Units Route Findings: Stress Note * Paced rhythm throughout the study. * No baseline arrhythmias were noted. * Pharmacologic stress ECG is non diagnostic for ischemia due to baseline paced rhythm. * No arrhythmias were noted during stress. * Chest discomfort reported prior to, during, and after the study. No change in intensity. Hemodynamic responses * Normal hemodynamic responses to pharmacologic stress. Study Quality * Study quality is average. Gated EF % * Gated EF = 54%. Left Ventricle * LVEDV = 241 mL. * The left ventricle is dilated. Inferior Perfusion Rest * The apical inferior/apex segments show a mild to moderate reduction in perfusion. Inferior Perfusion Stress * The apical inferior/apex segments show a mild to moderate reduction in perfusion. TID * No evidence of transient ischemic dilatation. TID ratio * TID ratio = 0.96. Lung Uptake * There is no evidence of increase lung uptake. Updated by Arvin Farah DO, PATRICK, SOIF, BRIAN on 11/28/2016 9:55:10 AM electronically signed on 11/28/2016 9:56:59 AM with status of Final
--- NOTE | 2016-11-28 15:58 | Discharge Summary ---
Date of Encounter: 11/28/16 Time of Encounter: 12:30 - Discharge Diagnosis (1) CHF (congestive heart failure) Priority: Primary Status: Acute Qualifiers: Congestive heart failure type: combined Congestive heart failure chronicity : acute on chronic Qualified Code(s): I50.43 - Acute on chronic combined systolic (congestive) and diastolic (congestive) heart failure (2) Chest pain Priority: Primary Status: Acute Qualifiers: Chest pain type: precordial pain Qualified Code(s): R07.2 - Precordial pain (3) Elevated troponin Priority: Primary Status: Acute (4) Morbid obesity with BMI of 40.0-44.9, adult Priority: Secondary Status: Chronic (5) CAD (coronary artery disease) Priority: Secondary Status: Chronic Qualifiers: Coronary Disease-Associated Artery/Lesion type: [place] artery [place] vs. transplanted heart: [place] heart Associated angina: without angina Qualified Code(s): I25.10 - Atherosclerotic heart disease of [place] coronary artery without angina pectoris (6) NIRMAL on CPAP Priority: Secondary Status: Chronic (7) Chronic back pain Priority: Secondary Status: Chronic Qualifiers: Back pain location: back pain in unspecified location Back pain laterality : unspecified Qualified Code(s): M54.9 - Dorsalgia, unspecified; G89.29 - Other chronic pain (8) Chronic venous stasis dermatitis of both lower extremities Priority: Secondary Status: Chronic (9) PAF (paroxysmal atrial fibrillation) Priority: Secondary Status: Chronic - Discharge Medications Home Medications: Atorvastatin [Lipitor] 40 mg PO DAILY 11/26/16 [History] Cholecalciferol (Vitamin D3) [Vitamin D3] 50,000 unit PO QWEEK 11/26/16 [History ] Duloxetine HCl [Cymbalta] 60 mg PO DAILY 11/26/16 [History] Furosemide [Lasix] 80 mg PO DAILY 11/26/16 [History] Losartan Potassium [Cozaar] 50 mg PO DAILY 11/26/16 [History] Metoprolol [Lopressor] 25 mg PO DAILY 11/26/16 [History] Potassium Chloride [K-Tab ER] 20 meq PO DAILY 11/26/16 [History] Rivaroxaban [Xarelto] 20 mg PO QDPC 11/26/16 [History] Allergies/Adverse Reactions: Allergies Penicillins Allergy (Severe, Verified 11/25/16 22:59) Difficulty Breathing hives also Procedures/tests Complete & Pending: Procedures Performed prior 72 hours Category Date Time Status NM sherron perf SPECT multi [NM] Routine Exams 11/27/16 10:36 Taken EV echocardiogram w enhance Routine Y 11/26/16 10:59 Completed SP pharm nuclear stress Routine Y 11/27/16 10:35 Completed Date of admission: 11/26/16 08:54 Primary care physician: PCP NO Discharging clinician: Diane Horn Anticipated date of discharge: 11/28/16 - Patient Status Disposition: Home, Self-Care Condition: Fair Functional capacity at discharge: independent ambulation Overall status at discharge: patient is progressing back to baseline - Discharge Instructions Instructions: Heart Failure (DC), Chest Pain (DC) Follow Up With: Michael Bang MD [Partnered Physician] - (cardiology will call for an appointment... and please call them if you don't hear from them...) Additional Instructions: F/up with [facility] in 1-2 weeks F/up with PCP in 1-2 weeks - Diet and Activity Activity: resume usual activities as tolerated Diet: low fat, low cholesterol, low salt diet (fluid restriction to 1.2L/day) Hospital course: Mr. Morgan is a 61 year old male with history of CAD and CHF was sent from cardiology office due to complaints of chest pain, weight gain and shortness of breath and was noted to have slight troponin leak on routine labs. Patient was monitored on telemetry which remained uneventful. Serial troponins remained flat and adynamic, not suggestive of ACS. Patient was noted to be having mild acute exacerbation of CHF and has been started on IV Lasix along with fluid restriction, beta gray and supplemental oxygen. Echocardiogram was done which showed low normal EF at 50%, mild concentric LVH, mild right ventricular dilation, device lead in the right atrium and ventricle, moderately dilated left atrium, mild mitral stenosis, tricuspid regurgitation and pulmonary hypertension. Patient also underwent a 2-part nuclear stress test, which was negative for ischemia. Cardiology was consulted and agreed with this management. He is currently doing well with improved symptoms, not requiring supplemental oxygen and is medically stable for discharge with outpatient cardiology follow-up. - Time Spent with Patient Total time spent providing and/or coordinating discharge services: Greater than 30 minutes (45 min) - Constitutional Vitals: Temp Pulse Resp BP Pulse Ox 97.6 F 88 18 130/64 94 11/28/16 15:27 11/28/16 15:27 11/28/16 15:27 11/28/16 15:27 11/28/16 15:27 General appearance: Present: A&O X 3, morbidly obese, answers questions appropriately - Respiratory Respiratory exam: Present: CTAB. Absent: accessory muscle use, rales, rhonchi, wheezes - Cardiovascular Cardiovascular exam: Present: RRR, +S1, +S2. Absent: diastolic murmur, gallop, rubs, systolic murmur
[2016-11-28] MEDS: *HR* Rivaroxaban 10 MG TABLET PO SCH (17:06)
[2016-11-28] MEDS: *HR* OxyCODONE/APAP 10/325 TABLET PO PRN (20:16)
[2016-11-29 04:30] VITALS: BP 142/78
[2016-11-29] MEDS: *HR* OxyCODONE/APAP 10/325 TABLET PO PRN (04:52)
[2016-11-29] MEDS: Isosorbide MONOnitrate (24 HR) 30 MG TAB.ER.24H PO SCH (08:09)
[2016-11-29] MEDS: Aspirin Enteric Coated 81 MG Tablet PO SCH (08:09)
[2016-11-29] MEDS: Furosemide 40 MG/4 ML VIAL IVP SCH (08:10)
[2016-11-29] MEDS: Budesonide/Formoterol 160/4.5 MDI IH SCH (09:09)
== END 2016-11-29 11:10 | disposition home or self-care (01) | DRG 292 ==
LOC: EMEROO 22:55 → 2ANU 22:55
PROVIDERS: ADMIT Internal Medicine; ATTEND Internal Medicine